=== PATIENT | female | born 1995 | race Caucasian/White ===

== ENCOUNTER 2024-06-17 15:39 | Emergency (ER) | payer BC ==
[2024-06-17 16:00] LABS: Bilirubin Negative (Negative); Blood, Urine Negative (Negative); Clarity Slightly Cloudy (Clear); Glucose, Urine (Dipstick) Negative (Negative); Ketone, Urine Trace mg/dL (Negative); Leukocyte Negative (Negative); Nitrite Negative (Negative); Protein, Urine (Dipstick) 30 mg/dL (Neg-Trace)
[2024-06-17 16:02] LABS: Pregnancy Test - Urine (BHCG) Negative (Negative)
[2024-06-17 16:03] LABS: Pregu Control Background? CLEAR/WHITE (CLR/WHITE); Pregu Control Bar Appear? YES (CONTROL BAR)
[2024-06-17] MEDS ORDERED: Ibuprofen 200 MG TAB ONE (16:09)
[2024-06-17] MEDS ORDERED: Methocarbamol 500 MG TAB ONE (16:10)
[2024-06-17 16:12] LABS: Bacteria/HPF 2+ HPF (None Seen); CAUTI Indications for Culture Dysuria,urgency,freq; Mucous/LPF 2+ LPF (<2+); RBC/HPF None Seen HPF (0-3); WBC/HPF 0-3 HPF (0-3)
[2024-06-17 16:13] LABS: Urine Culture Reflex No No
== END 2024-06-17 16:34 | disposition home or self-care (01) ==
LOC: BURERS 15:39
DX: M54.50 Low back pain, unspecified (principal); N39.0 Urinary tract infection, site not specified
CPT/HCPCS: 81001; 81025; 99283